=== PATIENT | male | born 1995 | race Hispanic/Latino ===

== ENCOUNTER 2022-03-26 07:33 | Emergency (ER) | payer SELFPAY ==
[2022-03-26] MEDS ORDERED: Boostrix 0.5 ML (Tdap) VIAL ONE (08:21)
[2022-03-26] MEDS ORDERED: Lidocaine 1% 20 ML MDV ONE (08:24)
[2022-03-26] MEDS ORDERED: Bacitracin 1 PK ONE (08:58)
== END 2022-03-26 09:10 | disposition home or self-care (01) ==
LOC: NAV ERS 07:33
DX: S66.120A Laceration of flexor muscle, fascia and tendon of right index finger at wrist and hand level, initial encounter (principal); W26.8XXA Contact with other sharp object(s), not elsewhere classified, initial encounter; Y93.F9 Activity, other caregiving; Z23 Encounter for immunization
CPT/HCPCS: 12001; 90471; 90715